=== PATIENT | female | born 1975 | race Caucasian/White ===

== ENCOUNTER 2016-09-20 13:58 | Emergency (ER) | payer OTHER ==
[~2016-09-20] VITALS: Ht 157.5 cm; Wt 75.4 kg
[2016-09-20 15:00] LABS: HEMATOCRIT 36.2 % (36.0-46.0); MCH 28.9 PG (29.0-34.0); MCV 90.3 FL (83-99); MEAN PLAT.VOLUME 8.6 uM^3 (9.5-12.4); PLATELET COUNT 632 K/uL (156-360); RBC DIS.WIDTH-CV 16.4 % (11.8-14.6); RBC DIS.WIDTH-SD 55.1 % (39-53); RED BLOOD COUNT 4.01 M/uL (3.80-5.20); WHITE BLOOD COUNT 8.9 K/uL (4.1-10.2)
[2016-09-20 15:11] LABS: CHLORIDE 106 mEq/L (99-109); SODIUM 137 mEq/L (136-147)
[2016-09-20 15:13] LABS: GLUCOSE 81 mg/dL (70-99)
[2016-09-20 15:15] LABS: ANION GAP 9 MEQ/L (2-14)
[2016-09-20 15:17] LABS: GFR ESTIMATE (CALCULATED) > 59 mL/min/
[2016-09-20 15:18] LABS: UREA NITROGEN (BUN) 6 mg/dL (9-23)
[2016-09-20 15:26] LABS: QUANTITATIVE HCG < 4.0 MIU/ML
[2016-09-20] MEDS ORDERED: FIORICET,ESG1 TABLET PO (18:09)
[2016-09-20 19:51] VITALS: BP 114/87
== END 2016-09-20 19:53 | disposition home or self-care (01) ==
LOC: EME 13:58
PROVIDERS: Emergency Medicine
DX: G43.909 Migraine, unspecified, not intractable, without status migrainosus (principal)
CPT/HCPCS: 70450; 70551; 80048; 84702; 85027; 93005; 99281; 99285; J2060; J7040